=== PATIENT | female | born 1990 | race Caucasian/White ===

== ENCOUNTER 2017-02-05 14:34 | Emergency (ER) | payer SELFPAY ==
[~2017-02-05] VITALS: Ht 165.1 cm; Wt 101.6 kg
[2017-02-05 14:34] VITALS: BP_SYST 135
[2017-02-05] MEDS ORDERED: PROCHLORPERAZINE EDISYLATE 10 MG/2 ML VIAL IM ONE (15:00)
[2017-02-05] MEDS ORDERED: KETOROLAC TROMETHAMINE 60 MG/2 ML VIAL IM ONE (15:00)
[2017-02-05 16:32] VITALS: BP_SYST 128
== END 2017-02-05 16:29 | disposition home or self-care (01) ==
LOC: SED 14:34
DX: R51 Headache (principal); R50.9 Fever, unspecified; J02.9 Acute pharyngitis, unspecified; Z88.1 Allergy status to other antibiotic agents
CPT/HCPCS: 81025; 96372; 99284; J0780; J1885

== ENCOUNTER 2017-05-19 23:17 | Emergency (ER) | payer SELFPAY ==
[~2017-05-19] VITALS: Ht 165.1 cm; Wt 99.3 kg
[2017-05-19 23:22] VITALS: BP_SYST 122
[2017-05-19 23:42] LABS: COLOR,URINE ORANGE (YELLOW)
[2017-05-19 23:43] LABS: BILIRUBIN,URINE NEGATIVE (NEGATIVE); BLOOD, URINE NEGATIVE (NEGATIVE); CLARITY/URINE SLIGHTLY CLOUDY (CLEAR); GLUCOSE,URINE NEGATIVE (NEGATIVE); KETONES,URINE NEGATIVE (NEGATIVE); LEUKOCYTE ESTERASE ,URINE 2+ (NEGATIVE); NITRITE, URINE POSITIVE (NEGATIVE); PROTEIN URINE NEGATIVE (NEGATIVE); UROBILINOGEN,URINE 0.2 (0.2-1.0)
[2017-05-19 23:44] LABS: BACTERIA,URINE MODERATE /HPF (None Seen); RBC,URINE 0-3 /HPF (0-3)
[2017-05-20 02:00] VITALS: BP_SYST 125
== END 2017-05-20 02:00 | disposition home or self-care (01) ==
LOC: SED 23:17
DX: N39.0 Urinary tract infection, site not specified (principal); Z88.1 Allergy status to other antibiotic agents
CPT/HCPCS: 81000-TC; 81025; 87086; 87210-TC; 87491; 87591; 99284

== ENCOUNTER 2018-03-05 17:13 | Emergency (ER) | payer MEDICAID ==
[~2018-03-05] VITALS: Ht 165.1 cm; Wt 99.3 kg
[2018-03-05 17:20] VITALS: BP_SYST 136
--- NOTE | 2018-03-05 17:31 | NUR ---
Patient to ER bed 07 to gown for evaluation. Side rails up.
--- NOTE | 2018-03-05 17:35 | NUR ---
Patient to ER via triage with c/o vaginal bleeding with passing of clots that has been going on since this morning. Patient is awake, alert and oriented in no acute distress, vital signs stable, respirations even and unlabored, skin warm and dry to touch. Patient able to ambulate to bed 7 without difficulty with slow steady gait. Awaiting evaluation by ER MD, will continue to observe and assess.
--- NOTE | 2018-03-05 17:40 | NUR ---
Dr Xavier at bedside to evaluate patient.
[2018-03-05 17:53] LABS: BILIRUBIN,URINE NEGATIVE (NEGATIVE); BLOOD, URINE 3+ (NEGATIVE); CLARITY/URINE SL CLOUDY (CLEAR); COLOR,URINE RED (YELLOW); GLUCOSE,URINE NEGATIVE (NEGATIVE); KETONES,URINE NEGATIVE (NEGATIVE); NITRITE, URINE NEGATIVE (NEGATIVE); PROTEIN URINE 1+ (NEGATIVE)
[2018-03-05 17:58] LABS: LEUKOCYTE ESTERASE ,URINE TRACE (NEGATIVE)
[2018-03-05 17:59] LABS: BACTERIA,URINE FEW /HPF (None Seen); RBC,URINE >100 /HPF (0-3)
[2018-03-05 18:00] LABS: MUCUS,URINE None Seen /LPF (None Seen)
[2018-03-05 18:05] LABS: BASOPHILS # (AUTO) 0.1 K/uL (0.0-0.2); BASOPHILS % (AUTO) 1.1 % (0.0-2.0); EOSINOPHILS # (AUTO) 0.2 K/uL (0.0-0.4); EOSINOPHILS % (AUTO) 1.6 % (0.0-4.0); HEMATOCRIT 35.3 % (36-48); HEMOGLOBIN 11.8 g/dL (12.0-16.0); LYMPHOCYTES # (AUTO) 2.8 K/uL (1.0-5.5); LYMPHOCYTES % (AUTO) 28.3 % (20.5-51.5); MEAN CORPUSCULAR HEMOGLOBIN 27 pg (27-31); MEAN CORPUSCULAR HGB CONC 33 % (32-36); MEAN CORPUSCULAR VOLUME 80 fL (79.0-98.0); MONOCYTES # (AUTO) 0.5 K/uL (0.0-1.0); MONOCYTES % (AUTO) 4.9 % (1.7-9.3); NEUTROPHILS # (AUTO) 6.4 K/uL (1.8-7.7); NEUTROPHILS % (AUTO) 64.1 % (40.0-70.0); PLATELET COUNT (AUTO) 181 K/uL (130-430); RED CELL DISTRIBUTION WIDTH 13.3 % (9.0-15.0)
[2018-03-05 18:12] LABS: CALCIUM 8.7 mg/dL (8.4-11.0); CREATININE 0.82 mg/dL (0.55-1.30); POTASSIUM 3.9 mmol/L (3.5-5.1)
--- NOTE | 2018-03-05 18:15 | NUR ---
Patient to ultrasound in stable condition.
[2018-03-05 18:37] LABS: ALBUMIN 3.7 g/dL (3.4-4.8); TOTAL BILIRUBIN 0.5 mg/dL (0.0-1.0)
--- NOTE | 2018-03-05 18:50 | NUR ---
Patient back from ultrasound in stable condition. Awaiting results and dispo.
[2018-03-05 19:00] VITALS: BP_SYST 125
--- NOTE | 2018-03-05 19:15 | NUR ---
Patient given written and verbal discharge instructions and verbalizes understanding. ER MD discussed with patient the results and treatment provided. Patient in stable condition. ID arm band removed. No RX given. Patient educated on pain management and to follow up with PMD. Pain Scale 0. Opportunity for questions provided and answered. Patient left ER in no acute distress. Aftercare instructions given to patient by Dr Xavier, questions answered by Dr Xavier.
== END 2018-03-05 19:15 | disposition home or self-care (01) ==
LOC: SED 17:13
DX: N92.0 Excessive and frequent menstruation with regular cycle (principal); F32.9 Major depressive disorder, single episode, unspecified; Z88.1 Allergy status to other antibiotic agents; Z90.49 Acquired absence of other specified parts of digestive tract
CPT/HCPCS: 36415; 76856-TC; 80053; 81000-TC; 81025; 84702-TC; 85025; 99285

== ENCOUNTER 2019-02-27 18:09 | Emergency (ER) | payer SELFPAY ==
[~2019-02-27] VITALS: Ht 165.1 cm; Wt 99.8 kg
[~2019-02-27 18:09] MED LIST: CIPR-211 PO; PRO20 PO
[2019-02-27 18:35] VITALS: BP_SYST 115
--- NOTE | 2019-02-27 18:48 | NUR ---
Patient to ER bed 1 to gown for evaluation. Side rails up. Report given to Fiona FLORES.
--- NOTE | 2019-02-27 19:38 | NUR ---
patient arrived AOX4 from home with c/o body aches, chills, nasal congetion and sore throat since last night. patient has 5/10 generalized pain. no other compalint or injury at this time.
--- NOTE | 2019-02-27 19:41 | NUR ---
ER Dr. Reyes at bedside examining patient.
--- NOTE | 2019-02-27 20:08 | NUR ---
swabs collected and sent to lab.
[2019-02-27 20:24] LABS: STREPTOCOCCUS A SCREEN (RAPID) NEGATIVE (NEGATIVE)
[2019-02-27 20:41] LABS: INFLUENZA A&B ANTIGEN SCREEN NEGATIVE FOR A & B (NEGATIVE)
--- NOTE | 2019-02-27 21:03 | NUR ---
patient moved to H1.
[2019-02-27 21:09] LABS: BILIRUBIN,URINE NEGATIVE (NEGATIVE); BLOOD, URINE NEGATIVE (NEGATIVE); CLARITY/URINE CLEAR (CLEAR); COLOR,URINE YELLOW (YELLOW); GLUCOSE,URINE NEGATIVE (NEGATIVE); KETONES,URINE NEGATIVE (NEGATIVE); LEUKOCYTE ESTERASE ,URINE 1+ (NEGATIVE); NITRITE, URINE NEGATIVE (NEGATIVE); PROTEIN URINE NEGATIVE (NEGATIVE); UROBILINOGEN,URINE 0.2 (0.2-1.0)
[2019-02-27 21:19] LABS: RBC,URINE 0-3 /HPF (0-3)
[2019-02-27 21:22] LABS: BACTERIA,URINE MODERATE /HPF (None Seen); MUCUS,URINE None Seen /LPF (None Seen)
[2019-02-27] MEDS ORDERED: NITROFURANTOIN MONOHYD/M-CRYST 100 MG CAPSULE PO ONE (21:45)
[2019-02-27 22:00] VITALS: BP_SYST 125
--- NOTE | 2019-02-27 22:00 | NUR ---
Patient given written and verbal discharge instructions and verbalizes understanding. ER MD discussed with patient the results and treatment provided. Patient in stable condition. ID arm band removed. Rx of Cipro given. Patient educated on pain management and to follow up with PMD. Pain Scale 0/10. Opportunity for questions provided and answered. Medication side effect fact sheet provided.
== END 2019-02-27 22:00 | disposition home or self-care (01) ==
LOC: SED 18:09
DX: N39.0 Urinary tract infection, site not specified (principal); F32.9 Major depressive disorder, single episode, unspecified; Z90.49 Acquired absence of other specified parts of digestive tract; Z88.1 Allergy status to other antibiotic agents; Z79.899 Other long term (current) drug therapy
CPT/HCPCS: 36415; 81000-TC; 86403; 86710; 87081; 87086; 99283